=== PATIENT | male | born 1985 | race Caucasian/White ===

== ENCOUNTER 2022-10-26 13:00 | Inpatient (IN) | payer BC ==
[2022-10-26 12:58] VITALS: BMI 38.1
[2022-11-01] MEDS ORDERED: Scopolamine 1.5 mg/72 hour Patch ONE (07:57)
[2022-11-01] MEDS ORDERED: Acetaminophen 500 MG TAB ONE (07:57)
[2022-11-01] MEDS ORDERED: Ketorolac Tromethamine 30 MG/ML VIAL ONE (07:57)
[2022-11-01] MEDS ORDERED: Heparin 5,000 UNITS/ML VIAL ONE (07:57)
[2022-11-01] MEDS ORDERED: Bupivacaine HCl 0.5%/Epinephrine 1:200,000/PF 30 ml Vial ONE (08:58)
[2022-11-01] MEDS ORDERED: Bupivacaine 0.25% HCL 30 ML VIAL ONE (09:00)
[2022-11-01] MEDS ORDERED: EPINEPHrine 1 MG/ML AMP ONE (09:00)
[2022-11-01] MEDS ORDERED: Famotidine/PF 20 mg/2ml Vial ONE (09:03)
[2022-11-01] MEDS ORDERED: Fentanyl 250 MCG/5 ML VIAL ONE (09:03)
[2022-11-01] MEDS ORDERED: SUGAMMADEX SODIUM 200 MG/2 ML VIAL ONE (09:04)
[2022-11-01] MEDS ORDERED: Dexmedetomidine 200 MCG/2 ML VIAL ONE (09:05)
[2022-11-01] MEDS ORDERED: CEFAZOLIN 2 GM VIAL ONE (09:13)
[2022-11-01] MEDS ORDERED: Sodium Chloride 0.9% 100 ML ONE (09:13)
[2022-11-01] MEDS ORDERED: Glycopyrrolate 0.2 MG/ML 5 ML SYRINGE ONE (09:19)
[2022-11-01] MEDS ORDERED: Rocuronium Bromide 10 MG/ML (10ML VIAL) ONE (09:19)
[2022-11-01] MEDS ORDERED: NEOSTIGMINE 3 MG/3 ML SYR 3 MG/3 ML SYRINGE ONE (09:19)
[2022-11-01] MEDS ORDERED: Lidocaine 1% PF 5 ML VIAL ONE (09:19)
[2022-11-01] MEDS ORDERED: Ondansetron PF 4 MG/2 ML Vial ONE (09:19)
[2022-11-01] MEDS ORDERED: PHENYLEPHRINE-NS 100 MCG/ML 10 ML SYRINGE ONE (09:19)
[2022-11-01] MEDS ORDERED: PROPOFOL 200 MG/20 ML VIAL ONE (09:19)
[2022-11-01] MEDS ORDERED: ePHEDrine Sulfate 50 MG/10 ML VIAL ONE (09:19)
[2022-11-01] MEDS ORDERED: Dexamethasone 20 MG/5 ML VIAL ONE (09:19)
[2022-11-01] MEDS ORDERED: Promethazine HCl 25 MG/ML VIAL IM PRN ×2 (11:09→12:57)
[2022-11-01] MEDS ORDERED: Morphine Sulfate 2 MG/ML SYRINGE SLOW IVP PRN (11:09)
[2022-11-01] MEDS ORDERED: PACU-Morphine 4MG/ML VIAL SLOW IVP PRN (11:09)
[2022-11-01] MEDS ORDERED: HYDROmorphone 2 MG/ML VIAL SLOW IVP PRN (11:09)
[2022-11-01] MEDS ORDERED: Ondansetron HCl/PF 4 MG/2 ML Vial IVP PRN (11:09)
[2022-11-01] MEDS ORDERED: fentaNYL 50 mcg/mL 1 mL Vial ONE (11:34)
[2022-11-01] MEDS ORDERED: Morphine 4 MG/ML VIAL SLOW IVP PRN (12:57)
[2022-11-01] MEDS ORDERED: Ipratropium/Albuterol 3 ML NEB NEB PRN (12:57)
[2022-11-01] MEDS ORDERED: Dextrose 50% Abboject 50 ML SYRINGE SLOW IVP PRN (12:57)
[2022-11-01] MEDS ORDERED: Glucagon 1 MG/ML KIT IM PRN (12:57)
[2022-11-01] MEDS ORDERED: Dextrose 5% in Water 1,000 ML IV PRN (12:57)
[2022-11-01] MEDS ORDERED: hydrALAZINE 20 MG/ML VIAL SLOW IVP PRN (12:57)
[2022-11-01] MEDS ORDERED: Ondansetron PF 4 MG/2 ML Vial IVP PRN (12:57)
[2022-11-01] MEDS ORDERED: Morphine 2 MG/ML VIAL SLOW IVP PRN (12:57)
[2022-11-01] MEDS ORDERED: diphenhydrAMINE 50 MG/ML VIAL IVP PRN (12:57)
[2022-11-01] MEDS: D5 1/2 NS w/20 mEq KCL 1,000 ML IV SCH ×2 (13:35→20:47)
[2022-11-01] MEDS: Hydrocodone-Acetamin 15 ML UDCUP PO PRN ×2 (14:49→21:30)
[2022-11-01] MEDS: Ketorolac Tromethamine 30 MG/ML VIAL IVP SCH (18:12)
[2022-11-02] MEDS: Ketorolac Tromethamine 30 MG/ML VIAL IVP SCH ×2 (00:21→05:21)
[2022-11-02] MEDS: Hydrocodone-Acetamin 15 ML UDCUP PO PRN ×2 (04:25→08:52)
[2022-11-02] MEDS: D5 1/2 NS w/20 mEq KCL 1,000 ML IV SCH (04:26)
[2022-11-02 05:20] LABS: #Monocytes 1.5 thou/uL (0.11-0.59); #Neutrophils 16.1 thou/uL (1.40-6.50); %Basophils 0.1 % (0.0-1.0); %Eosinophils 0.1 % (0.0-10.0); %Lymphocytes 8.5 % (21.0-51.0); %Monocytes 7.6 % (0.0-10.0); %Neutrophils 83.1 % (42.0-75.0); Hemoglobin 14.1 g/dL (14.0-18.0); Mean Corpuscular HGB CONC 35.3 g/dL (32.0-36.0); Mean Corpuscular Hemoglobin 30.3 pg (27.0-31.0); Mean Corpuscular Volume 85.8 fl (78.0-98.0); Mean Platelet Volume 9.4 fL (7.4-10.4); Platelet Count 345 10x3/uL (130-400); Red Blood Cell (RBC) Count 4.65 mill/uL (4.70-6.10); White Blood Cell (WBC) Count 19.4 10x3/uL (4.8-10.8)
[2022-11-02 05:29] VITALS: TEMP 98.3
[2022-11-02 05:47] LABS: Anion Gap 12 mmol/L (10-20); BUN (Urea Nitrogen) 11 mg/dL (8.9-20.6); Calc. Creatinine Clearance 184 mL/min (70-130); Calcium 8.9 mg/dL (7.8-10.44); Carbon Dioxide 22 mmol/L (22-29); Chloride 105 mmol/L (98-107); Estimated GFR 108; Glucose 148 mg/dL (70-105); Potassium 4.4 mmol/L (3.5-5.1); Sodium 135 mmol/L (136-145)
[2022-11-02 08:04] VITALS: BP 142/87
[2022-11-02] MEDS ORDERED: Pantoprazole 40 MG VIAL IVP SCH (09:00)
[2022-11-02] MEDS ORDERED: Amlodipine 5 mg/Benazepril 20 mg CAP PO SCH (09:00)
== END 2022-11-02 11:47 | disposition home or self-care (01) | DRG 621 ==
LOC: SURG A 11-01 07:08
PROVIDERS: ADMIT Specialist; ATTEND Specialist
PROC: 0DB64Z3 Excision of Stomach, Percutaneous Endoscopic Approach, Vertical (ICD-10-PCS; principal; 2022-11-01)
PROC: 3E033XZ Introduction of Vasopressor into Peripheral Vein, Percutaneous Approach (ICD-10-PCS; 2022-11-01)
DX: E66.01 Morbid (severe) obesity due to excess calories (principal); I10 Essential (primary) hypertension; Z68.38 Body mass index [BMI] 38.0-38.9, adult; Z98.52 Vasectomy status; Z79.899 Other long term (current) drug therapy
CPT/HCPCS: 36415; 80048; 85025; 88307; A4649; C9113; J0171; J1100; J1644; J1650; J1885; J2270; J2405; J2704; J3010; J3480; J3490; S0020; S0028